=== PATIENT | female | born 1985 | race African-American/Black ===

== ENCOUNTER 2017-01-31 09:41 | Emergency (ER) | payer MEDICAID ==
[~2017-01-31] VITALS: Ht 172.7 cm; Wt 65.0 kg
[2017-01-31] MEDS ORDERED: KETOROLAC 30MG/ML VIAL IV ONE ×2 (10:15→11:30)
[2017-01-31] MEDS ORDERED: MORPHINE SULFATE 4 MG/ML CPJ (NOT FOR IM USE) IV ONE (10:15)
[2017-01-31] MEDS ORDERED: SODIUM CHLORIDE 0.9% 1,000 ML IV ONE (11:08)
[2017-01-31] MEDS ORDERED: ONDANSETRON HCL 4MG/2ML VIAL IV ONE (11:15)
[2017-01-31 11:19] LABS: BASOPHILS % 0.8 % (0.0-2.0); EOSINOPHILS % 0.5 % (0.0-5.0); HEMATOCRIT. 36.8 % (36.0-48.0); HEMOGLOBIN. 12.4 g/dL (12.0-16.0); LYMPHOCYTES % 29.9 % (20.0-50.0); MEAN CORPUSCULAR HEMOGLOBIN 30.7 pg (28.0-32.0); NEUTROPHILS % 56.8 % (40.0-76.0); PLATELET 276 x1000/uL (130-400); RED BLOOD CELL COUNT 4.04 mill/uL (4.2-5.4); RED CELL DISTRIBUTION WIDTH 14.1 % (11.6-14.6)
[2017-01-31 11:34] LABS: CARBON DIOXIDE 25 mEq/L (21-32); CHLORIDE 108 mEq/L (98-107); TROPONIN I < 0.02 ng/mL (0.00-0.04)
[2017-01-31 11:53] LABS: HCG SCREEN NEGATIVE
[2017-01-31] MEDS ORDERED: HYDROCODONE/ACETAMINOPHEN 10/325MG TABLET PO ONE (13:15)
[2017-01-31 13:21] VITALS: BP 105/68
== END 2017-01-31 14:03 | disposition home or self-care (01) ==
LOC: ER 09:45
DX: R07.81 Pleurodynia (principal); Z88.0 Allergy status to penicillin; Z90.49 Acquired absence of other specified parts of digestive tract; W01.0XXA Fall on same level from slipping, tripping and stumbling without subsequent striking against object, initial encounter; Y93.89 Activity, other specified; Y99.8 Other external cause status; Y92.89 Other specified places as the place of occurrence of the external cause
CPT/HCPCS: 36415; 71010; 71100; 80048; 84484; 84703; 85025; 96361; 96374; 96375; 99285; J1885; J2270; J2405; J7030

== ENCOUNTER 2018-03-11 06:08 | Emergency (ER) | payer MEDICAID ==
[~2018-03-11] VITALS: Ht 157.5 cm; Wt 59.0 kg
[2018-03-11] MEDS ORDERED: ONDANSETRON HCL 4MG/2ML INJ IV STA (07:11)
[2018-03-11] MEDS ORDERED: SODIUM CHLORIDE 0.9% 1,000 ML IV ONE (07:11)
[2018-03-11] MEDS ORDERED: KETOROLAC 30MG/ML VIAL IV STA (07:11)
[2018-03-11 07:30] LABS: CHLORIDE 111 mEq/L (98-107); PROTHROMBIN TIME 10.4 sec (9.1-11.1)
[2018-03-11 07:34] LABS: BASOPHILS % 0.7 % (0.0-2.0); EOSINOPHILS % 0.5 % (0.0-5.0); HEMATOCRIT. 35.1 % (36.0-48.0); HEMOGLOBIN. 12.1 g/dL (12.0-16.0); LYMPHOCYTES % 16.4 % (20.0-50.0); MEAN CORPUSCULAR HEMOGLOBIN 31.5 pg (28.0-32.0); MEAN CORPUSCULAR VOLUME 91.3 fL (81.0-99.0); MEAN PLATELET VOLUME 8.6 fl (7.4-10.4); MONOCYTES % 13.3 % (2.0-8.0); NEUTROPHILS % 69.1 % (40.0-76.0); PLATELET 257 x1000/uL (130-400); RED BLOOD CELL COUNT 3.85 mill/uL (4.2-5.4); RED CELL DISTRIBUTION WIDTH 13.8 % (11.6-14.6)
[2018-03-11 07:39] LABS: CLARITY URINE CLOUDY (CLEAR); COLOR URINE YELLOW (YELLOW); KETONES URINE NEGATIVE (NEGATIVE); LEUKOCYTE ESTERASE URINE TRACE (NEGATIVE); NITRITE URINE NEGATIVE (NEGATIVE); OCCULT BLOOD URINE NEGATIVE (NEGATIVE); PH URINE 5.5 (4.5-8.0); PROTEIN URINE NEGATIVE (NEGATIVE); SPECIFIC GRAVITY URINE 1.009 (1.005-1.030); UROBILINOGEN URINE 0.2 E.U./dL (0.2-1.0)
[2018-03-11] MEDS ORDERED: MORPHINE SULFATE 4 MG/ML CPJ (NOT FOR IM USE) IV ONE (09:15)
[2018-03-11 09:37] LABS: HCG SCREEN NEGATIVE
[2018-03-11] MEDS ORDERED: DOXYCYCLINE HYCLATE 100MG CAPSULE PO ONE (12:15)
[2018-03-11] MEDS ORDERED: LEVOFLOXACIN 750MG PREMIX 150 ML IV ONE (12:15)
[2018-03-11 13:48] VITALS: BP 89/57
== END 2018-03-11 13:58 | disposition home or self-care (01) ==
LOC: ER 06:31
DX: N73.9 Female pelvic inflammatory disease, unspecified (principal); N39.0 Urinary tract infection, site not specified; Z88.1 Allergy status to other antibiotic agents; Z90.89 Acquired absence of other organs
CPT/HCPCS: 36415; 74176; 76830; 76856; 80053; 81003; 81025; 83690; 84703; 85025; 85610; 96361; 96365; 96375; 99284; J1885; J1956; J2270; J2405; J7030

== ENCOUNTER 2018-11-25 05:08 | Emergency (ER) | payer OTHER, MEDICAID ==
[~2018-11-25] VITALS: Ht 160 cm; Wt 59.0 kg
[2018-11-25 06:05] VITALS: BP 107/69
== END 2018-11-25 06:06 | disposition home or self-care (01) ==
LOC: ER 05:08
DX: N73.8 Other specified female pelvic inflammatory diseases (principal)
CPT/HCPCS: 99281

== ENCOUNTER 2020-09-12 06:23 | Emergency (ER) | payer OTHER ==
[~2020-09-12] VITALS: Ht 160 cm; Wt 61.0 kg
[2020-09-12] MEDS ORDERED: FAMOTIDINE 20MG/2ML VIAL IV STA (07:14)
[2020-09-12] MEDS ORDERED: METOCLOPRAMIDE HCL 10MG/2ML VIAL IV STA (07:14)
[2020-09-12] MEDS ORDERED: MAGNESIUM/ALUMINUM HYDROXIDE/SIMETHICONE 30ML UDC PO STA (07:14)
[2020-09-12] MEDS ORDERED: SODIUM CHLORIDE 0.9% 1,000 ML IV ONE (07:15)
[2020-09-12] MEDS ORDERED: VISCOUS LIDOCAINE 2% 15 ML UDC PO STA (07:15)
[2020-09-12 08:08] LABS: BASOPHILS % 0.6 % (0.0-2.0); EOSINOPHILS % 0.1 % (0.0-5.0); HEMATOCRIT. 38.9 % (36.0-48.0); HEMOGLOBIN. 13.2 g/dL (12.0-16.0); LYMPHOCYTES % 12.1 % (20.0-50.0); MEAN CORPUSCULAR HEMOGLOBIN 30.7 pg (28.0-32.0); MEAN CORPUSCULAR VOLUME 90.3 fL (81.0-99.0); MEAN PLATELET VOLUME 8.4 fl (7.4-10.4); MONOCYTES % 7.9 % (2.0-8.0); NEUTROPHILS % 79.3 % (40.0-76.0); PLATELET 261 x1000/uL (130-400); RED BLOOD CELL COUNT 4.31 mill/uL (4.2-5.4); RED CELL DISTRIBUTION WIDTH 13.9 % (11.6-14.6)
[2020-09-12 08:16] LABS: CHLORIDE 105 mEq/L (98-107)
[2020-09-12 08:18] LABS: PROTHROMBIN TIME 11.1 sec (9.6-11.0)
[2020-09-12 08:20] LABS: ETHANOL BLOOD < 10 mg/dL
[2020-09-12 08:24] LABS: HCG SCREEN NEGATIVE
[2020-09-12 09:17] LABS: CLARITY URINE CLOUDY (CLEAR); COLOR URINE DARK YELLOW (YELLOW); KETONES URINE 3+ (NEGATIVE); LEUKOCYTE ESTERASE URINE 1+ (NEGATIVE); NITRITE URINE NEGATIVE (NEGATIVE); OCCULT BLOOD URINE 2+ (NEGATIVE); PH URINE 5.5 (4.5-8.0); PROTEIN URINE 1+ (NEGATIVE); SPECIFIC GRAVITY URINE 1.035 (1.005-1.030)
[2020-09-12] MEDS ORDERED: FAMO-135 MT (09:28)
[2020-09-12] MEDS ORDERED: SUCR1TAB30 MT (09:28)
[2020-09-12] MEDS ORDERED: ONDA4TAB5 MT (09:28)
[2020-09-12 09:48] LABS: *BARBITURATES SCREEN URINE NEGATIVE (NEGATIVE); *BENZODIAZEPINES SCREEN URINE NEGATIVE (NEGATIVE); *COCAINE SCREEN URINE NEGATIVE (NEGATIVE)
[2020-09-12 09:49] LABS: METHADONE URINE SCREEN NEGATIVE (NEGATIVE); OPIATES URINE SCREEN NEGATIVE (NEGATIVE); PHENCYCLIDINE URINE SCREEN NEGATIVE (NEGATIVE)
[2020-09-12 09:53] LABS: *AMPHETAMINES SCREEN URINE PRESUMTIVE POSITIVE (NEGATIVE); CANNABINOID URINE SCREEN PRESUMTIVE POSITIVE (NEGATIVE)
[2020-09-12 10:00] VITALS: BP 114/61
== END 2020-09-12 10:14 | disposition home or self-care (01) ==
LOC: ER 06:23
DX: R10.13 Epigastric pain (principal); R11.0 Nausea; F15.10 Other stimulant abuse, uncomplicated; Z90.49 Acquired absence of other specified parts of digestive tract; F17.290 Nicotine dependence, other tobacco product, uncomplicated; F12.10 Cannabis abuse, uncomplicated; Z88.0 Allergy status to penicillin
CPT/HCPCS: 36415; 80053; 80305; 80320; 81003; 81025; 83690; 84703; 85025; 85610; 87086; 96361; 96374; 96375; 99284; J2765; J3490; J7030; G0480